=== PATIENT | female | born 1955 | race Caucasian/White ===

== ENCOUNTER 2021-03-08 08:27 | Outpatient (CLI) | payer OTHER | END 2021-03-08 08:28 | disposition home or self-care (01) | LOC: CSHCT 08:27 | PROVIDERS: ATTEND Internal Medicine Gastroenterology | DX: E16.4 Increased secretion of gastrin (principal); K21.9 Gastro-esophageal reflux disease without esophagitis; K57.30 Diverticulosis of large intestine without perforation or abscess without bleeding; N28.1 Cyst of kidney, acquired; Z95.828 Presence of other vascular implants and grafts | CPT/HCPCS: 74177; 82565 ==